=== PATIENT | female | born 1960 | race Caucasian/White ===

== ENCOUNTER 2018-01-22 18:51 | Emergency (ER) | END 2018-01-22 19:46 | disposition home or self-care (01) ==

== ENCOUNTER 2018-02-02 08:21 | Emergency (ER) | END 2018-02-02 10:47 | disposition home or self-care (01) ==

== ENCOUNTER 2019-01-05 06:46 | Day surgery (SDC) | payer OTHER ==
[~2019-01-05] VITALS: Ht 160 cm; Wt 73.3 kg
[~2019-01-05 06:46] MED LIST: ALBU8.5H8 INH; CETI10CA PO; DOXY100T20 PO; GUAI120S26 PO; IBUP-1542 PO
[2019-01-05 07:26] VITALS: Ht 160 cm; Wt 73.3 kg
[2019-01-05] MEDS ORDERED: ATOR40TA68 PO (07:49)
[2019-01-05 07:57] VITALS: BP 114/71; PULSE 54; RESP 20
[2019-01-05] MEDS ORDERED: MIDAZOLAM 1 MG/ML 2 ML INJ ONE ×2 (08:49)
[2019-01-05] MEDS ORDERED: FENTAnyl 50 MCG/ML VIAL ONE (08:49)
== END 2019-01-05 10:21 | disposition home or self-care (01) ==
LOC: GIL 06:46
PROVIDERS: ATTEND Internal Medicine Gastroenterology
DX: Z12.11 Encounter for screening for malignant neoplasm of colon (principal); K64.8 Other hemorrhoids; K64.4 Residual hemorrhoidal skin tags; K57.30 Diverticulosis of large intestine without perforation or abscess without bleeding
CPT/HCPCS: 45378; J2250; J3010; Z7610